=== PATIENT | female | born 1990 | race Caucasian/White ===

== ENCOUNTER → 2019-08-28 10:39 | Outpatient (CLI) | payer OTHER, SELFPAY ==
--- NOTE | ~2019-08-28 | XR_ITS ---
XR chest 2V DATE: 08/28/2019 10:55 INDICATION: Cough for 4 months TECHNIQUE: 2 views COMPARISON: 07/04/2016 PA and lateral chest 12/04/2016 CT abdomen pelvis FINDINGS: Normal heart size. No hilar or mediastinal enlargement. No pulmonary infiltrate or consolid ation, pleural effusion or pulmonary vascular congestion or pneumothorax. On the lateral view there a re surgical clips overlying the right upper quadrant, likely due to cholecystectomy. 12/04/2016 CT abdo men pelvis reported findings of probable acute cholecystitis. IMPRESSION: No active cardiopulmonary disease Reviewed, dictated and finalized at location A.
== END ==
PROVIDERS: PCP Emergency Medicine; Visit Provider Emergency Medicine
DX: R05 Cough (principal)
CPT/HCPCS: 71046

== ENCOUNTER 2020-03-16 09:19 | Emergency (ER) | payer OTHER, SELFPAY ==
--- NOTE | ~2020-03-16 | XR_ITS ---
EXAMINATION: XR foot RT min 3V DATE: 03/16/2020 09:41 INDICATION: Lateral right foot pain. TECHNIQUE: 4 views of right foot were obtained. COMPARISON: None. FINDINGS: Bone alignment is normal. No fracture. There is mild osteoarthritis of first metatarsophala ngeal joint. There is soft tissue swelling lateral to fifth metatarsal. IMPRESSION: 1. Mild osteoarthritis of first metatarsophalangeal joint. Reviewed, dictated and finalized at location B. HER VOCAL
--- NOTE | 2020-03-16 09:28 | ED.LOWEXIN ---
HPI - Extremity Injury (Lower) General Chief Complaint: Extremity Injury, Lower Stated Complaint: Right foot Pain Source: patient and RN notes reviewed Mode of arrival: ambulatory Limitations: no limitations Related Data Home Medications Medication Instructions Recorded Confirmed levonorgestrel [Susan] 1 device INTRAUTERINE ONCE 03/16/20 03/16/20 sertraline [Zoloft] 25 mg PO HS 03/16/20 03/16/20 Allergies Allergy/AdvReac Type Severity Reaction Status Date / Time No Known Allergies Allergy Verified 03/16/20 09:33 Review of Systems Review of Systems: Narrative: This is a 29-year-old white female who presented to urgent care today with complaints of right foot pain. 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 She noticed yesterday that she had pain to the lateral side of her left foot with pressure. Patient decided to come to the urgent care to rule out a fracture. She did note that yesterday she was unable to prevent putting pressure on her foot due to her household duties and care for her children. Patient's pulses were palpable in her lower extremities she did have full range of motion, she has some tenderness to the lateral side of her foot with palpation and pain with extension. I did not notice any swelling or ecchymosis. Patient notes that she does have pain with weightbearing. Patient has no neurovascular compromised. will discharge patient home with a Cristopher wrap, instructions to take ibuprofen for inflammation in All systems reviewed & are unremarkable except as noted in HPI and below (10 point system reviewed) PMFSH Family History Family History Other Asthma Diabetes mellitus Hypertension Social History Social History Smoking status: Former smoker Smoking end date: 05/06/09 Alcohol intake: current Gender identity (if verbalized by the patient): Female Exam Narrative: Exam Narrative: GENERAL: This is a well-nourished, well-developed patient, in no apparent distress. HEAD: normocephalic, atraumatic. EYES: PERRL. Sclera clear/white. Vision is grossly intact. EARS: External ears normal, auditory canals clear and without drainage, TMs normal without perforation. Hearing grossly intact. NOSE: External nose normal with no obvious nasal discharge, nares without redness, no rhinorrhea. THROAT: Mucous membranes moist, posterior pharynx clear. NECK: Neck supple, non-tender without lymphadenopathy, masses or thyromegaly. CARDIOVASCULAR: Regular rate and rhythm without murmurs, gallops, or rubs. RESPIRATORY: Clear to auscultation. Breath sounds equal bilaterally. No wheezes, rales, or rhonchi. GASTROINTESTINAL: Abdomen soft, non-tender, nondistended. Bowel sounds are active. No hepato-splenomegaly, or palpable masses. No guarding. SKIN: warm, intact with no suspicious lesions or rash, good texture and turgor. NEURO: awake, alert, and oriented to person, place and time. There were no obvious focal neurologic abnormalities. Steady gait EXTREMITIES: Normal range of motion. No edema. No calf tenderness. Negative Homans sign bilaterally. Left ankle and foot pain with palpitation and extension BACK: Nontender without deformity or crepitance. No flank tenderness. Course Vital Signs Vital signs: Vital Signs Temperature 98.8 F 03/16/20 09:30 Pulse Rate 66 03/16/20 09:30 Respiratory Rate 16 03/16/20 09:30 Blood Pressure 144/76 H 03/16/20 09:30 Pulse Oximetry 98 03/16/20 09:30 Temperature 98.8 F 03/16/20 09:30 Pulse Rate 66 03/16/20 09:30 Respiratory Rate 16 03/16/20 09:30 Blood Pressure 144/76 H 03/16/20 09:30 Pulse Oximetry 98 03/16/20 09:30 Procedures Other Procedure Procedure 1: Other Procedure: Cristopher wrap the extremity and provide crutches MDM - Extrem
[2020-03-16 09:30] VITALS: BP 144/76; PULSE 66; RESP 16; TEMP 37.1; O2SAT 98
== END 2020-03-16 10:00 | disposition home or self-care (01) ==
PROVIDERS: Emergency Provider Nurse Practitioner
DX: S93.401A Sprain of unspecified ligament of right ankle, initial encounter (principal); S96.911A Strain of unspecified muscle and tendon at ankle and foot level, right foot, initial encounter; X58.XXXA Exposure to other specified factors, initial encounter; Z87.891 Personal history of nicotine dependence
CPT/HCPCS: 73630; 99213; G0463

== ENCOUNTER 2020-05-02 15:50 | Emergency (ER) | payer OTHER, SELFPAY ==
[2020-05-02 15:53] VITALS: BP 146/87; PULSE 91; RESP 18; TEMP 35.9; O2SAT 100
--- NOTE | 2020-05-02 16:38 | ED.GENADULT ---
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 just prior to arrival last tetanus up-to-date notes mild discomfort presents in no distress Related Data Home Medications Medication Instructions Recorded Confirmed levonorgestrel [Susan] 1 device INTRAUTERINE ONCE 03/16/20 03/16/20 sertraline [Zoloft] 25 mg PO HS 03/16/20 03/16/20 Allergies Allergy/AdvReac Type Severity Reaction Status Date / Time No Known Allergies Allergy Verified 05/02/20 15:58 Review of Systems Constitutional: Constitutional: Denies chills and Denies fever(s) Respiratory: Respiratory: Denies cough and Denies dyspnea Musculoskeletal: Musculoskeletal: Denies myalgias and Denies deformity Neurologic: Denies Sensory deficit (Neuro), Denies tingling and Denies weakness PMFSH Family History Family History Other Asthma Diabetes mellitus Hypertension Social History Social History Smoking status: Former smoker Smoking end date: 05/06/09 Alcohol intake: current Gender identity (if verbalized by the patient): Female Exam Narrative: Exam Narrative: GENERAL: Well-appearing, well-nourished, and in no acute distress. HEAD: Normocephalic, atraumatic. EYES: PERRLA and EOMI. ENT: Nares clear, no rhinorrhea or epistaxis. Mucous membranes moist. EXTREMITIES: Normal range of motion. No edema. SKIN: Warm, dry, no rash. Half centimeter superficial skin avulsion distal right index finger NEURO: No focal deficits. Alert and oriented x3. Neurovascularly intact PSYCH: Normal mood and affect. Course Course Emergency Course: Patient in the room in no distress aware of case findings treatment plan diagnosis Vital Signs Vital signs: Vital Signs Temperature 96.7 F L 05/02/20 15:53 Pulse Rate 91 05/02/20 15:53 Respiratory Rate 18 05/02/20 15:53 Blood Pressure 146/87 H 05/02/20 15:53 Pulse Oximetry 100 05/02/20 15:53 Temperature 96.7 F L 05/02/20 15:53 Pulse Rate 91 05/02/20 15:53 Respiratory Rate 18 05/02/20 15:53 Blood Pressure 146/87 H 05/02/20 15:53 Pulse Oximetry 100 05/02/20 15:53 Medical Decision Making MDM Narrative Medical decision making narrative: Patients injury or pain is consistent with musculoskeletal etiology. No signs of neurological or vascular compromise on exam. Compartments and tisues are soft without signs of compartment syndrome. Pain is felt appropriate for further evaluation on an outpatient basis. Vital Signs Vital Signs: Vital Signs Temperature 96.7 F L 05/02/20 15:53 Pulse Rate 91 05/02/20 15:53 Respiratory Rate 18 05/02/20 15:53 Blood Pressure 146/87 H 05/02/20 15:53 Pulse Oximetry 100 05/02/20 15:53 Temperature 96.7 F L 05/02/20 15:53 Pulse Rate 91 05/02/20 15:53 Respiratory Rate 18 05/02/20 15:53 Blood Pressure 146/87 H 05/02/20 15:53 Pulse Oximetry 100 05/02/20 15:53 Discharge Plan Discharge Clinical Impression: Avulsion of skin Patient Disposition: Home, Self-Care Condition: Stable Instructions: Antibiotic Form, Skin Avulsion (ED) Additional Instructions: Follow up with primary care in the next 7 days for re-evaluation return if symptoms worsen or concerns, any increase in redness swelling pain or fever over 100.5 Clean wound with mild soapy water. Apply antibiotic ointment and clean dressing at least three times daily Prescriptions: No Action sertraline [Zoloft] 25 mg Tablet 25 mg PO HS RF: 0 Susan 14 mcg/24 hrs (3 yrs) 13.5 mg Intrauterine Device 1 dev
== END 2020-05-02 16:53 | disposition home or self-care (01) ==
PROVIDERS: Emergency Provider Emergency Medicine; PCP Physician Assistant
DX: S61.200A Unspecified open wound of right index finger without damage to nail, initial encounter (principal); Z87.891 Personal history of nicotine dependence; W26.9XXA Contact with unspecified sharp object(s), initial encounter; Y93.G1 Activity, food preparation and clean up
CPT/HCPCS: 99282

== ENCOUNTER 2020-07-01 10:05 | Outpatient (CLI) | payer OTHER, SELFPAY ==
--- NOTE | ~2020-07-01 | US_ITS ---
EXAMINATION: US thyroid EXAM DATE: 07/01/2020 10:28 INDICATION: Single nontoxic thyroid nodule. TECHNIQUE: Multiple grayscale and Doppler images of the thyroid were obtained (by a technologist who performed the scan) and subsequently reviewed. Individual nodules and recommendations may be reporte d in accordance with TI-RADS system as designated by the 2017 ACR White Paper TI-RADS committee. The re is no prior study for comparison. FINDINGS: The right thyroid lobe measures 4.6 x 2.1 x 1.7 cm, the left measuring 5.4 x 1.8 x 1.5 cm. There is m ildly diffusely heterogeneous thyroid echogenicity without focal nodule identified. IMPRESSION: 1. Mild thyromegaly. Reviewed, dictated and finalized at location B. TE ADVISOR IMPRESSION: 1. Mild thyromegaly.
== END 2020-07-01 10:06 | disposition home or self-care (01) ==
PROVIDERS: PCP Physician Assistant; Visit Provider Physician Assistant
DX: E04.1 Nontoxic single thyroid nodule (principal)
CPT/HCPCS: 76536

== ENCOUNTER 2020-12-03 11:23 | Emergency (ER) | payer OTHER, SELFPAY ==
--- NOTE | ~2020-12-03 | CT_ITS ---
EXAMINATION: CT abdomen pelvis wo con DATE: 12/03/2020 13:25 INDICATION: Left upper quadrant abdominal pain TECHNIQUE: Computed tomography (CT) of the abdomen and pelvis was performed without intravenous contr ast. Automated exposure control and iterative reconstruction technique were employed. The dose-length product was 794.63 mGy-cm. COMPARISON: 12/04/2016 FINDINGS: Lung bases are clear. Heart size is normal. No pericardial or pleural effusion. Cholecystectomy clips at the gallbladder fossa. Liver, spleen, pancreas and bilateral adrenal glands are normal. Bilateral nephrolithiasis with a 1 mm stone at the lower pole of the left kidney and 4 stones in the right kid amilcar, the largest 2 measuring 3-4 mm. There is a 2 mm stone at the left ureterovesicular junction with mild left hydroureteronephrosis. Bladder is otherwise unremarkable. Bowels are unremarkable. The hafsa endix is not visualized and reportedly surgically absent. There is an IUD which is abnormally positio rosales at the lower uterine segment with the central stem and extending through the endocervical canal. Bilateral adnexa are unremarkable. No free intraperitoneal gas or fluid. No pathologically enlarged a bdominal or pelvic lymphadenopathy. Sacralized L5 segment. IMPRESSION: 1. Bilateral nephrolithiasis with at least partially obstructing 2 mm stone at the left ureterovesicu lar junction with mild left hydroureteronephrosis. 2. IUD is positioned within the lower uterine segment extending into the endocervical canal. Recommen d notification of patient's SYSTEM ARCHIVE ANALYST. Reviewed, dictated and finalized at location A. IMPRESSION: 1. Bilateral nephrolithiasis with at least partially obstructing 2 mm stone at the left ureterovesicular junction with mild left hydroureteronephrosis. 2. IUD is positioned within the lower uterine segment extending into the endoce rvical canal. Recommend notification of patient's SYSTEM ARCHIVE ANALYST.
[2020-12-03 11:30] VITALS: BP 144/82; PULSE 60; RESP 20; TEMP 36.8; O2SAT 98
[2020-12-03 12:10] LABS: Basophils Absolute Auto 0.1 K/mm3 (0.0-0.1); Basophils Percent Auto 0.5 % (0.2-1.2); Eosinophils Absolute Auto 0.1 K/mm3 (0-0.3); Eosinophils Percent Auto 0.6 % (0-4.4); Hematocrit 47.6 % (37.0-47.0); Hemoglobin 15.9 g/dL (12.0-15.0); Immature Granulocyte Absolute 0.04 K/mm3 (0.00-0.031); Immature Granulocyte Percent A 0.4 % (0-0.5); Lymphocytes Absolute Auto 1.91 K/mm3 (0.9-3.2); Mean Corpuscular HGB Conc 33.4 g/dl (32-36); Mean Corpuscular Volume 86.9 fl (80-100); Mean Platelet Volume 10.2 fl (7.4-10.4); Monocytes Absolute Auto 0.8 K/mm3 (0.1-0.6); Monocytes Percent Auto 7.6 % (2.6-8.5); Neutrophils Absolute Auto 7.2 K/mm3 (1.3-6.7); Neutrophils Percent Auto 71.9 % (45.5-73.1); Platelet Count Result 268 k/mm3 (150-375); Red Blood Count 5.48 M/mm3 (4.2-5.4); Red Cell Distribution Width 11.9 % (11.5-14.5); White Blood Count 10.1 K/mm3 (4.5-10.0)
[2020-12-03 12:17] LABS: Add Urine Microscopic? YES; Appearance Urine Cloudy (Clear); Bilirubin Urine Negative (Negative); Blood Urine 2+ (Negative); Color Urine Yellow (Yellow); Glucose Urine UA Negative (Negative); Ketones Urine Negative (Negative); Leukocyte Esterase Ur Trace LEU/UL (Negative); Mucus Urine Rare /lpf; Nitrate Urine Negative (Negative); Protein Urine Negative (Negative); Specific Grav Ur 1.019 (1.001-1.035); Squamous Epithelial Cell Urine Many /hpf (Few); WBC Urine 0-3 /hpf
[2020-12-03 12:21] LABS: Anion Gap 13 mmol/L (8-16); Blood Urea Nitrogen 13 mg/dL (7-17); Calcium 10.6 mg/dL (8.4-10.2); Carbon Dioxide 24 mmol/L (22-30); Chloride 103 mmol/L (98-107); Estimated CRCL calculation 116 ml/min; Estimated Glomerular Filt Rate > 60; Glucose 94 mg/dL (65-110); Potassium 4.8 mmol/L (3.4-5.0); Sodium 140 mmol/L (137-145)
[2020-12-03] MEDS: SODIUM CHLORIDE 0.9% IV 1,000 ML 999 ML IV CONT (12:52)
[2020-12-03] MEDS: KETOROLAC 30 MG/ML VIAL (*BKC) IV PUSH (12:53)
[2020-12-03 13:07] LABS: Pregnancy On Board Control Positive; Urine Pregnancy Test Negative
--- NOTE | 2020-12-03 14:57 | ED.ABDPAIN ---
HPI - Abdominal Pain General Chief Complaint: Abdominal Pain Stated Complaint: ABDOMINAL PAIN Time Seen by Provider: 12/03/20 12:27 History of Present Illness HPI narrative: Patient is a 30-year-old female who presents ER with left-sided flank pain and abdominal pain. Has history of kidney stones. Starts in the left upper quadrant radiates down into the groin. No fevers or chills or sweats. No chest pain or chest pressure. Mild nausea but no vomiting. No alleviating factors. Related Data Home Medications Medication Instructions Recorded Confirmed levonorgestrel [Susan] 1 device INTRAUTERINE ONCE 03/16/20 03/16/20 sertraline [Zoloft] 25 mg PO HS 03/16/20 03/16/20 Allergies Allergy/AdvReac Type Severity Reaction Status Date / Time No Known Allergies Allergy Verified 12/03/20 12:39 Review of Systems Review of Systems: All systems reviewed & are unremarkable except as noted in HPI and below Constitutional: Constitutional: Denies chills, Denies fever(s) and Denies weakness ENT: Denies nasal congestion and Denies sore throat Cardiovascular: Cardiovascular: Denies chest pain and Denies radiating jaw, neck or arm pain Gastrointestinal: Gastrointestinal: Reports abdominal pain, Reports nausea and Denies vomiting Genitourinary: Genitourinary: Denies hematuria, Reports nocturia, Denies dysuria and Reports flank pain PMFSH Past Medical History Medical History (Updated 12/03/20 @ 15:03 by Satnam Dozier MD) Anxiety Depression Kidney stones Surgical History Surgical History (Updated 12/03/20 @ 15:03 by Satnam Dozier MD) History of appendectomy History of section History of cholecystectomy Family History Family History Other Asthma Diabetes mellitus Hypertension Social History Social History Smoking status: Former smoker Smoking end date: 05/06/09 Alcohol intake: current Gender identity (if verbalized by the patient): Female Exam Narrative: GENERAL: Well-appearing, well-nourished, and in no acute distress. HEAD: Normocephalic, atraumatic. CHEST: Clear to auscultation. No respiratory distress. HEART: Regular rate and rhythm. Normal peripheral pulses. ABDOMEN: Soft, nontender, nondistended EXTREMITIES: Normal range of motion. No edema. SKIN: Warm, dry, no rash. NEURO: Alert and oriented x3. PSYCH: Normal mood and affect. Course Course Emergency Course: Patient informed of results. Also discussed her low-lying IUD and need for follow-up with OB. Patient verbalized understanding. Pain controlled with Toradol. Discharge home. Vital Signs Vital signs: Vital Signs Temperature 98.2 F 12/03/20 11:30 Pulse Rate 60 12/03/20 11:30 Respiratory Rate 20 12/03/20 11:30 Blood Pressure 144/82 H 12/03/20 11:30 Pulse Oximetry 98 12/03/20 11:30 Temperature 98.2 F 12/03/20 11:30 Pulse Rate 60 12/03/20 11:30 Respiratory Rate 20 12/03/20 11:30 Blood Pressure 144/82 H 12/03/20 11:30 Pulse Oximetry 98 12/03/20 11:30 MDM - Abdominal Pain Lab Data Result diagrams: 12/03/20 12:03 12/03/20 12:03 Labs: Lab Results 12/03/20 12/03/20 12/03/20 Range/Units 12:03 12:03 12:03 WBC 10.1 H (4.5-10.0) K/mm3 RBC 5.48 H (4.2-5.4) M/mm3 Hgb 15.9 H (12.0-15.0) g/dL Hct 47.6 H (37.0-47.0) % MCV 86.9 (80-100) fl MCH 29.0 (26-34) pg MCHC 33.4 (32-36) g/dl RDW 11.9 (11.5-14.5) % Plt Count 268 (150-375) k/mm3 MPV 10.2 (7.4-10.4) fl Immature Gran % (Auto) 0.4 (0-0.5) % Neut % (Auto) 71.9 (45.5-73.1) % Lymph % (Auto) 19.0 (18.3-44.2) % Jessamine % (Auto) 7.6 (2.6-8.5) % Eos % (Auto) 0.6 (0-4.4) % Baso % (Auto) 0.5 (0.2-1.2) % Lymph # (Auto) 1.91 (0.9-3.2) K/mm3 Jessamine # (Auto) 0.8 H (0.1-0.6) K/mm3 Eos # (Auto) 0.1 (0-0.3) K/mm3 Bas
[2020-12-03 15:59] VITALS: BP 138/75; PULSE 63; RESP 17; O2SAT 100
== END 2020-12-03 16:00 | disposition home or self-care (01) ==
PROVIDERS: Emergency Medicine; Emergency Provider Emergency Medicine; PCP Physician Assistant
DX: N13.2 Hydronephrosis with renal and ureteral calculous obstruction (principal); T83.32XA Displacement of intrauterine contraceptive device, initial encounter; F41.9 Anxiety disorder, unspecified; F32.9 Major depressive disorder, single episode, unspecified; Z87.891 Personal history of nicotine dependence; Z87.442 Personal history of urinary calculi
CPT/HCPCS: 36415; 74176; 80048; 81001; 81025; 85025; 96361; 96374; 99284; J1885; J7030

== ENCOUNTER 2021-02-21 14:20 | Emergency (ER) | payer OTHER, SELFPAY ==
--- NOTE | ~2021-02-21 | CT_ITS ---
EXAMINATION: CT abdomen pelvis w con INDICATION: Left lower abdominal pain TECHNIQUE: Computed tomographic images of the abdomen and pelvis were obtained after the administrati on of 100 cc of Omnipaque 350 intravenous contrast. The dose-length product (DLP) was 1363.47 mGy-cm. Automated exposure control and iterative reconstruction technique were employed. COMPARISON: 12/03/2020 FINDINGS: Minimal dependent atelectasis is present in the lung bases. The heart size is normal. The g allbladder is surgically absent. The liver, spleen, pancreas, and adrenal glands are normal. Nonobstr ucting stones of the right kidney measure up to 5 mm. There is a 2 mm nonobstructing stone of the lef t kidney lower pole. No pathologically enlarged abdominal or pelvic lymph nodes are identified. There is no free intraperitoneal gas or evidence of bowel obstruction. An IUD is present in the uterus in expected position. There is a small fat-containing umbilical hernia. An approximately 1.9 x 1.6 cm so ft tissue density nodule is present in the subcutaneous fat of the left lower quadrant. Although pres ent on the 12/03/2020 comparison, there appears to be slight increase in size with surrounding inflamm atory change. IMPRESSION: 1. Indeterminate soft tissue density in the subcutaneous tissues of the left lower quadrant with surr ounding inflammatory change. Clinically correlate for tenderness at this site and consider trial of a ntibiotics. Then, follow-up targeted ultrasound and possible biopsy are recommended. Reviewed, dictated and finalized at location A. IMPRESSION: 1. Indeterminate soft tissue density in the subcutaneous tissues of the left lo wer quadrant with surrounding inflammatory change. Clinically correlate for ten derness at this site and consider trial of antibiotics. Then, follow-up targete d ultrasound and possible biopsy are recommended.
--- NOTE | ~2021-02-21 | US_ITS ---
EXAMINATION: US pelvic complete w TV DATE: 02/21/2021 17:37 INDICATION: Left adnexal pain TECHNIQUE: Multiple transabdominal and endovaginal sonographic images of the pelvis were obtained. COMPARISON: None. FINDINGS: The uterus measures 10.1 x 4.6 x 6.0 cm. An IUD is present in expected position. The endome trial complex measures 7 mm. The right ovary measures 2.7 x 2.0 x 1.5 cm. The left ovary measures 3.4 x 2.2 x 2.2 cm. There is normal vascular flow in the ovaries. There is no free fluid in the pelvis. IMPRESSION: 1. No sonographic correlate for the patient's symptoms. Reviewed, dictated and finalized at location A.
[2021-02-21 14:21] VITALS: BP 116/87; PULSE 79; RESP 20; TEMP 36.7; O2SAT 100
[2021-02-21 15:28] LABS: Basophils Absolute Auto 0.1 K/mm3 (0.0-0.1); Basophils Percent Auto 0.5 % (0.2-1.2); Eosinophils Absolute Auto 0.1 K/mm3 (0-0.3); Hematocrit 47.6 % (37.0-47.0); Hemoglobin 16.5 g/dL (12.0-15.0); Immature Granulocyte Absolute 0.02 K/mm3 (0.00-0.031); Immature Granulocyte Percent A 0.2 % (0-0.5); Lymphocytes Absolute Auto 2.54 K/mm3 (0.9-3.2); Lymphocytes Percent Auto 27.8 % (18.3-44.2); Mean Corpuscular HGB Conc 34.7 g/dl (32-36); Mean Corpuscular Hemoglobin 29.8 pg (26-34); Mean Corpuscular Volume 85.9 fl (80-100); Mean Platelet Volume 10.2 fl (7.4-10.4); Monocytes Absolute Auto 0.5 K/mm3 (0.1-0.6); Monocytes Percent Auto 5.4 % (2.6-8.5); Neutrophils Absolute Auto 5.9 K/mm3 (1.3-6.7); Neutrophils Percent Auto 65.1 % (45.5-73.1); Platelet Count Result 252 k/mm3 (150-375); Red Blood Count 5.54 M/mm3 (4.2-5.4); Red Cell Distribution Width 12.3 % (11.5-14.5); White Blood Count 9.1 K/mm3 (4.5-10.0)
[2021-02-21 15:32] LABS: Add Urine Microscopic? YES; Appearance Urine Cloudy (Clear); Bilirubin Urine Negative (Negative); Blood Urine 3+ (Negative); Color Urine Yellow (Yellow); Glucose Urine UA Negative (Negative); Ketones Urine Negative (Negative); Leukocyte Esterase Ur Negative LEU/UL (Negative); Mucus Urine Rare /lpf; Nitrate Urine Negative (Negative); Protein Urine Negative (Negative); Specific Grav Ur 1.016 (1.001-1.035); Squamous Epithelial Cell Urine Moderate /hpf (Few); Urobilinogen Urine Negative mg/dL (<2.0); WBC Urine 0-3 /hpf
[2021-02-21 15:33] LABS: Alanine Aminotransferase 41 U/L (4-35); Albumin Level 5.2 g/dL (3.5-5.1); Alkaline Phosphatase 80 U/L (38-126); Anion Gap 13 mmol/L (8-16); Aspartate Amino Transferase 31 U/L (14-36); Blood Urea Nitrogen 11 mg/dL (7-17); Carbon Dioxide 26 mmol/L (22-30); Chloride 105 mmol/L (98-107); Estimated CRCL calculation 133 ml/min; Estimated Glomerular Filt Rate > 60; Glucose 103 mg/dL (65-110); Lipase 52 U/L (23-300); Potassium 4.7 mmol/L (3.4-5.0); Sodium 144 mmol/L (137-145)
[2021-02-21 17:45] VITALS: BP 145/79; PULSE 54; RESP 16; O2SAT 98
[2021-02-21] MEDS: KETOROLAC 30 MG/ML VIAL (*BKC) IV PUSH (18:07)
--- NOTE | 2021-02-21 18:17 | ED.ABDPAIN ---
HPI - Abdominal Pain General Chief Complaint: Abdominal Pain Stated Complaint: pain in my L ovary Time Seen by Provider: 02/21/21 16:47 Source: patient and RN notes reviewed Mode of arrival: ambulatory Limitations: no limitations History of Present Illness HPI narrative: Patient is a 30-year-old female who presents for evaluation of abdominal pain that has began to intensify over the last day as a sharp pain in the lower abdomen patient also is currently on her menses she was concerned that she may have developed another ovarian cyst she also has a history of kidney stones she notes that the pain caused her to have emesis she has taken ibuprofen the last of which was earlier this morning with no improvement denies other complaints or concerns is followed by [facility] Related Data Home Medications Medication Instructions Recorded Confirmed ibuprofen 02/21/21 Allergies Allergy/AdvReac Type Severity Reaction Status Date / Time No Known Allergies Allergy Verified 12/03/20 12:39 Review of Systems Review of Systems: All systems reviewed & are unremarkable except as noted in HPI and below PMFSH Past Medical History Medical History Anxiety Depression Kidney stones Surgical History Surgical History History of appendectomy History of section History of cholecystectomy Family History Family History Other Asthma Diabetes mellitus Hypertension Social History Social History Smoking status: Former smoker Smoking end date: 05/06/09 Alcohol intake: current Gender identity (if verbalized by the patient): Female Exam Narrative: GENERAL: Well-appearing, well-nourished, and in no acute distress. HEAD: Normocephalic, atraumatic. EYES: PERRLA and EOMI. ENT: Nares clear, no rhinorrhea or epistaxis. Mucous membranes moist. CHEST: Clear to auscultation. No respiratory distress. No wheezes rales or rhonchi HEART: Regular rate and rhythm. No murmur heard. Normal peripheral pulses. ABDOMEN: Soft, tenderness across the lower quadrants of the abdomen, nondistended. EXTREMITIES: Normal range of motion. No edema. SKIN: Warm, dry, no rash. NEURO: No focal deficits. Alert and oriented x3. PSYCH: Normal mood and affect. Course Course Emergency Course: Patient evaluated in the emergency department for abdominal pain patient has follow-up with her inpatient services rn next Shivam she is aware of her case findings treatment plan and diagnosis she is feeling better at this time she feels comfortable with the outpatient follow-up she has been given strict reasons to return she is nontoxic-appearing without emesis Vital Signs Vital signs: Vital Signs Temperature 98.0 F 02/21/21 14:21 Pulse Rate 79 02/21/21 14:21 Respiratory Rate 20 02/21/21 14:21 Blood Pressure 116/87 02/21/21 14:21 Pulse Oximetry 100 02/21/21 14:21 Temperature 98.8 F 02/21/21 19:19 Pulse Rate 95 02/21/21 19:19 Respiratory Rate 14 02/21/21 19:19 Blood Pressure 120/74 02/21/21 19:19 Pulse Oximetry 99 02/21/21 19:19 MDM - Abdominal Pain MDM Narrative Medical decision making narrative: Patient presented with abdominal pain patient was made aware of her case findings treatment plan diagnosis unsure as to the soft tissue swelling in the left lower abdomen she does have tenderness to location so she will be placed on antibiotics she will follow with her inpatient services rn for further evaluation she is felt appropriate for outpatient reevaluation Lab Data Result diagrams: 02/21/21 15:05 02/21/21 15:05 Labs: Lab Results 02/21/21 02/21/21 02/21/21 Range/Units 15:05 15:05 15:05 WBC 9.1 (4.5-10.0) K/mm3 RBC 5.54 H (4.2-5.4) M/mm3 Hgb 16.5 H (12.0-15.0) g
[2021-02-21 19:19] VITALS: BP 120/74; PULSE 95; RESP 14; TEMP 37.1; O2SAT 99
--- NOTE | 2021-02-21 19:20 | PC.NURSE ---
Assumed care of pt. at this time. Report from Cat. Pola PULIDO
[2021-02-21 19:51] VITALS: BP 133/83; PULSE 55; RESP 18; O2SAT 100
== END 2021-02-21 19:53 | disposition home or self-care (01) ==
PROVIDERS: Emergency Medicine; Emergency Provider Emergency Medicine; PCP Physician Assistant
DX: R10.30 Lower abdominal pain, unspecified (principal); Z87.442 Personal history of urinary calculi; Z87.891 Personal history of nicotine dependence
CPT/HCPCS: 36415; 74177; 76830; 76856; 80053; 81001; 81025; 83690; 85025; 96374; 99284; J1885; Q9967

== ENCOUNTER 2021-03-08 14:57 | Outpatient (CLI) | payer OTHER, SELFPAY ==
--- NOTE | ~2021-03-08 | US_ITS ---
US abdomen complete DATE: 03/08/2021 15:27 INDICATION: Unspecified abdominal pain. Left lower abdomen abscess in the scar. TECHNIQUE: Real-time imaging of the abdomen, Doppler analysis COMPARISON: 02/21/2021 CT abdomen pelvis FINDINGS: The gallbladder is surgically absent. No hepatic or pancreatic space-occupying mass lesion. The common bile duct measures 3.7 mm, normal. N ormal splenic size. No renal mass lesion or hydronephrosis. Normal caliber of the abdominal aorta. Inferior vena cava is unremarkable. IMPRESSION: Status post cholecystectomy Reviewed, dictated and finalized at Location A. Reviewed, dictated and finalized at location A. IMPRESSION: Status post cholecystectomy
== END 2021-03-08 14:58 | disposition home or self-care (01) ==
LOC: ANHIMG 14:58
PROVIDERS: PCP Physician Assistant; Visit Provider Obstetrics & Gynecology
DX: R10.9 Unspecified abdominal pain (principal); Z90.49 Acquired absence of other specified parts of digestive tract
CPT/HCPCS: 76700

== ENCOUNTER 2022-01-23 13:20 | Outpatient (CLI) | payer OTHER, SELFPAY ==
--- NOTE | ~2022-01-23 | US_ITS ---
EXAMINATION: US breast LT limited HISTORY: Palpable lump at the 3:00 location of the left breast TECHNIQUE: Limited left breast ultrasound was performed. FINDINGS: There is no evidence of focal abnormal cystic or solid mass in the vicinity of the reported palpable abnormality of concern. IMPRESSION: No specific sonographic correlate is identified for the reported palpable abnormality of concern. Fur ther evaluation at this time should be based on clinical assessment. Continued follow-up physical exa mination is recommended. BI-RADS Category 1: Negative Reviewed, dictated and finalized at location A. IMPRESSION: No specific sonographic correlate is identified for the reported palpable abnor mality of concern. Further evaluation at this time should be based on clinical assessment. Continued follow-up physical examination is recommended. BI-RADS Category 1: Negative
== END 2022-01-23 13:21 | disposition home or self-care (01) ==
PROVIDERS: PCP Physician Assistant; Visit Provider Obstetrics & Gynecology
DX: R92.8 Other abnormal and inconclusive findings on diagnostic imaging of breast (principal)
CPT/HCPCS: 76642

== ENCOUNTER 2022-04-07 16:28 | Emergency (ER) | payer OTHER, SELFPAY ==
--- NOTE | ~2022-04-07 | CT_ITS ---
EXAMINATION: CT abdomen pelvis w con DATE: 04/07/2022 17:44 INDICATION: epigastric pain, N/V/D. History of cholecystectomy, appendectomy, and kidney stones. TECHNIQUE: Computed tomography (CT) of the abdomen and pelvis was performed with 100 mL Omnipaque-350 intravenous contrast. Automated exposure control and iterative reconstruction technique were employe d. The dose-length product was 1334.30 mGy-cm. COMPARISON: 02/21/2021. FINDINGS: Lower thorax: Dependent atelectasis. Liver: Normal. Biliary/Gallbladder: Gallbladder is absent. No bile duct dilation. Pancreas: No mass or duct dilation. Spleen: Normal. Adrenals:No mass. Kidneys: Bilateral nonobstructing calculi. No suspicious mass or hydronephrosis. GI tract: Mild distal esophageal and gastric wall edema No small or large bowel dilation. Surgically absent appendix. Mesentery/Peritoneum: No ascites, mass, or free air. Retroperitoneum: No mass. Pelvis: Normal bladder and uterus. Normal bilateral ovaries. Right corpus luteal cyst. IUD, in good p osition. Soft Tissues: 2 cm soft tissue density nodule again seen in the subcutaneous fat of the left lower qu adrant possibly associated with the lower left rectus muscle, similar in size to the prior study, wit h persistent mild fat stranding. Uncomplicated small fat-containing umbilical hernia. Bones: No acute osseous finding. IMPRESSION: Mild esophagitis/gastritis. Otherwise, no acute abdominopelvic process detected. Persistent soft tiss ue density nodule along the left lower quadrant anterior abdominal wall with mild inflammatory change , recommend nonemergent outpatient soft tissue ultrasound for further evaluation. Reviewed, dictated and finalized at location K. NGUAL INTERPRETER IMPRESSION: Mild esophagitis/gastritis. Otherwise, no acute abdominopelvic process detected . Persistent soft tissue density nodule along the left lower quadrant anterior abdominal wall with mild inflammatory change, recommend nonemergent outpatient soft tissue ultrasound for further evaluation.
[2022-04-07 16:31] VITALS: BP 121/66; PULSE 71; RESP 18; TEMP 36.7; O2SAT 98
--- NOTE | 2022-04-07 16:35 | ED.NAVMDI ---
HPI - Nausea/Vomiting/Diarrhea General Chief complaint: Nausea/Vomiting/Diarrhea Stated complaint: n/v/d, abd cramping Time Seen by Provider: 04/07/22 16:33 Source: patient Mode of arrival: EMS Limitations: no limitations History of Present Illness HPI Narrative: Patient is a 31-year-old female who presents the ED via EMS with report of N/V/D. Patient reports she ate [employer] fast food yesterday and developed nausea and vomiting last night. She also reported having upper abdominal cramping and bloating at that time. She developed diarrhea today and reported having several episodes. She has tried taking Tums, Gas-X, Imodium without relief. She has not tried anything for pain. Vomiting continued, which prompted her presentation. Patient denies any hematemesis, rectal bleeding, fever, cough or cold symptoms, urinary symptoms. Related Data Home Medications Medication Instructions Recorded Confirmed sertraline 25 mg tablet 25 mg PO DAILY 05/30/21 05/30/21 sertraline 50 mg tablet 50 mg PO DAILY 05/30/21 05/30/21 spironolactone 100 mg tablet 100 mg PO DAILY 05/30/21 05/30/21 Allergies Allergy/AdvReac Type Severity Reaction Status Date / Time No Known Allergies Allergy Verified 04/07/22 16:30 Review of Systems Review of Systems: CONSTITUTIONAL: Denies fever, chills, or sweats. ENT: Denies rhinorrhea, congestion, sore throat. CARDIOVASCULAR: Denies chest pain. RESPIRATORY: Denies cough or dyspnea. GASTROINTESTINAL: Reports epigastric pain and bloating, N/V/D. Denies rectal bleeding, hematemesis. GENITOURINARY: Denies dysuria or hematuria. All systems reviewed & are unremarkable except as noted in HPI and below PMFSH Past Medical History Medical History Anxiety Depression Hyperlipemia Intrauterine device Susan insertion 11/16/16 Susan removal/replacement 05/25/20 Susan removal/replacement 01/03/21 b/c device had shifted Kidney stones Surgical History Surgical History History of appendectomy History of section 11/24/13 09/27/15 History of cholecystectomy 12/30/16 Hx of tonsillectomy Family History Family History Other Diabetes mellitus maternal aunt Autism daughter Mother Diabetes mellitus Cerebrovascular accident Father Heart disease Grandparent Breast cancer paternal grandmother Sibling Cerebral palsy sister Other Asthma Hypertension Social History Social History Smoking status: Former smoker Tobacco type: e-cigarettes/vaping Smoking end date: 05/06/09 Alcohol intake: current Alcohol use details: 1-2 on weekends Substance use: never Substance use type: does not use Additional living arrangements comments: mother 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 HEAD: Normocephalic, atraumatic. NECK: Supple. No adenopathy, no masses. RESPIRATORY: Airway patent, respirations nonlabored. Clear to auscultation bilaterally, no rales, rhonchi, wheezing. CARDIOVASCULAR: Regular rate and rhythm without murmurs, rubs, or gallops. Peripheral pulses 2+ and equal bilaterally. ABDOMINAL: Soft, mild tenderness to palpation in epigastric region, nondistended, no hepatosplenomegaly. Normoactive BS. MUSCULOSKELETAL: Moves all extremities. Strength/ROM intact without gross deformities. SKIN: Warm, dry, normal color. No rashes. NEURO: A&O X3. Speech clear. Cranial nerves II-XII grossly intact. Steady gait. No ataxic movements. PSYCHIATRIC: Appropriate mood and affe
[2022-04-07 16:50] LABS: Basophils Percent Auto 0.3 % (0.2-1.2); Eosinophils Absolute Auto 0.1 K/mm3 (0-0.3); Eosinophils Percent Auto 1.1 % (0-4.4); Hematocrit 47.7 % (37.0-47.0); Hemoglobin 15.9 g/dL (12.0-15.0); Immature Granulocyte Absolute 0.05 K/mm3 (0.00-0.031); Immature Granulocyte Percent A 0.4 % (0-0.5); Lymphocytes Absolute Auto 2.21 K/mm3 (0.9-3.2); Lymphocytes Percent Auto 17.7 % (18.3-44.2); Mean Corpuscular HGB Conc 33.3 g/dl (32-36); Mean Platelet Volume 10.1 fl (7.4-10.4); Monocytes Percent Auto 7.9 % (2.6-8.5); Neutrophils Absolute Auto 9.1 K/mm3 (1.3-6.7); Neutrophils Percent Auto 72.6 % (45.5-73.1); Platelet Count Result 248 k/mm3 (150-375); Red Blood Count 5.48 M/mm3 (4.2-5.4); Red Cell Distribution Width 12.6 % (11.5-14.5); White Blood Count 12.5 K/mm3 (4.5-10.0)
[2022-04-07 17:00] VITALS: BP 106/56; PULSE 58; RESP 18; O2SAT 99
[2022-04-07 17:01] LABS: Alanine Aminotransferase 120 U/L (6-35); Albumin Level 4.8 g/dL (3.5-5.1); Alkaline Phosphatase 106 U/L (38-126); Anion Gap 9 mmol/L (8-16); Aspartate Amino Transferase 169 U/L (14-36); Blood Urea Nitrogen 10 mg/dL (7-17); Calcium 9.4 mg/dL (8.4-10.2); Carbon Dioxide 23 mmol/L (22-30); Chloride 106 mmol/L (98-107); Estimated CRCL calculation 134 ml/min; Estimated Glomerular Filt Rate > 60; Glucose 90 mg/dL (65-110); Lipase 62 U/L (23-300); Potassium 4.1 mmol/L (3.4-5.0); Sodium 138 mmol/L (137-145)
[2022-04-07] MEDS: SODIUM CHLORIDE 0.9% IV 1,000 ML 999 ML IV CONT (17:21)
[2022-04-07 17:22] LABS: Appearance Urine Slightly Cloudy (Clear); Bilirubin Urine Negative (Negative); Blood Urine Trace-lysed (Negative); Color Urine Yellow (Yellow); Glucose Urine UA Negative (Negative); Ketones Urine Negative (Negative); Leukocyte Esterase Ur Negative LEU/UL (Negative); Nitrate Urine Negative (Negative); Protein Urine Negative (Negative); Urobilinogen Urine 0.2 mg/dL (<2.0)
[2022-04-07] MEDS: MORPHINE SULFATE (*CRX) 4 MG/ML INJ IV PUSH (17:22)
[2022-04-07 17:31] LABS: Mucus Urine Rare /lpf; RBC Urine 0-2 /hpf (0-2); Squamous Epithelial Cell Urine Moderate /hpf (Few); WBC Urine 0-3 /hpf
[2022-04-07 17:37] LABS: Add Urine Microscopic? YES
[2022-04-07 17:45] VITALS: BP 99/57; PULSE 63; RESP 18; O2SAT 100
[2022-04-07 18:21] LABS: Influenza A QL RT-PCR Negative (Negative); Influenza B QL RT-PCR Negative (Negative); SARS-CoV-2 RNA PCR Negative
[2022-04-07] MEDS: PANTOPRAZOLE SODIUM IV 40 MG VIAL IV PUSH (18:24)
[2022-04-07] MEDS: BELLADONNA ALK/PHENOB ELIX 10 ML, MAG HYDROX/ALUMINUM HYD/SIMETH 30 ML, LIDOCAINE HCL 2... PO (18:24)
[2022-04-07 19:37] VITALS: BP 112/66; O2SAT 98
== END 2022-04-07 19:20 | disposition home or self-care (01) ==
PROVIDERS: Emergency Provider Physician Assistant; PCP Physician Assistant
DX: K29.00 Acute gastritis without bleeding (principal); R74.01 Elevation of levels of liver transaminase levels; R11.2 Nausea with vomiting, unspecified; Z87.891 Personal history of nicotine dependence; Z20.822 Contact with and (suspected) exposure to COVID-19
CPT/HCPCS: 36415; 74177; 80053; 81001; 81025; 83690; 85025; 87636; 96361; 96374; 96375; 99284; A9270; C9113; J2270; J7030; Q9967

== ENCOUNTER 2022-05-01 07:35 | Outpatient (CLI) | payer OTHER, SELFPAY ==
--- NOTE | ~2022-05-01 | US_ITS ---
Abdominal Soft Tissue Sonogram: Real-time sonographic imaging of the left lower quadrant at site of clinical concern was performed. Clinical History: Abdominal swelling/mass Findings: At the area of clinical concern at the left lower quadrant, there is a 1.8 x 1.4 x 1.7 cm h eterogeneously hypoechoic solid mass, with somewhat lobulated borders. Impression: 1.8 cm indeterminate solid appearing mass at the left lower quadrant, at the area of palpable/clinica l concern. Sonographic imaging features are nonspecific. Patient states that the lesion has been pres ent for one year, which, in addition to the young age of the patient, would suggest a benign lesion. Nevertheless, pre-and postcontrast MR should be considered to attempt to further characterize this le wood. Reviewed, dictated and finalized at location M. NTRYMAN Impression: 1.8 cm indeterminate solid appearing mass at the left lower quadrant, at the ar ea of palpable/clinical concern. Sonographic imaging features are nonspecific. Patient states that the lesion has been present for one year, which, in additio n to the young age of the patient, would suggest a benign lesion. Nevertheless, pre-and postcontrast MR should be considered to attempt to further characteriz e this lesion.
== END 2022-05-01 07:36 | disposition home or self-care (01) ==
LOC: ANHIMG 07:36
PROVIDERS: PCP Physician Assistant; Visit Provider Physician Assistant
DX: R19.00 Intra-abdominal and pelvic swelling, mass and lump, unspecified site (principal)
CPT/HCPCS: 76705

== ENCOUNTER 2022-06-02 16:08 | Emergency (ER) | payer OTHER, SELFPAY ==
[2022-06-02 16:23] VITALS: BP 140/82; PULSE 92; RESP 16; TEMP 37.6; O2SAT 99
--- NOTE | 2022-06-02 17:18 | ED.URI ---
HPI - URI/Sore Throat General Chief Complaint: Upper Respiratory Infection Stated Complaint: runny nose,sinus pressure,hurts to swallow Time Seen by Provider: 06/02/22 17:18 Source: patient, RN notes reviewed and old records reviewed Mode of arrival: ambulatory Limitations: no limitations History of Present Illness HPI Narrative: 32-year-old female presents to the [facility] with complaints of runny nose, sinus pressure and throat pain. Reports daughter tested positive for strep 2 weeks ago Declined testing Related Data Home Medications Medication Instructions Recorded Confirmed sertraline 25 mg tablet 25 mg PO DAILY 05/30/21 05/30/21 sertraline 50 mg tablet 50 mg PO DAILY 05/30/21 05/30/21 spironolactone 100 mg tablet 100 mg PO DAILY 05/30/21 05/30/21 Allergies Allergy/AdvReac Type Severity Reaction Status Date / Time No Known Allergies Allergy Verified 06/02/22 16:32 Review of Systems Review of Systems: All systems reviewed & are unremarkable except as noted in HPI and below Constitutional: Constitutional: Reports no additional constitutional complaints Eyes: Eyes: Reports no additional eye complaints ENT: Reports as per HPI and Reports sore throat Cardiovascular: Cardiovascular: Reports no additional cardiovascular complaints, Denies chest pain and Denies dyspnea Respiratory: Respiratory: Reports no additional respiratory complaints, Denies chest congestion, Denies cough and Denies dyspnea Gastrointestinal: Gastrointestinal: Reports no additional gastrointestinal complaints, Denies abdominal pain, Denies nausea and Denies vomiting Musculoskeletal: Musculoskeletal: Reports no additional musculoskeletal complaints Integumentary/Breasts: Skin/Breast: Reports system reviewed and no additional complaints, except as docu Neurologic: Reports system reviewed and no additional complaints, except as documented Psychiatric: Psychiatric: Reports no additional psychiatric complaints Allergic/Immunologic: Allergic/Immunologic: Reports no additional allergic/immunologic complaints [facility] Past Medical History Medical History Anxiety Depression Hyperlipemia Intrauterine device Susan insertion 11/16/16 Susan removal/replacement 05/25/20 Susan removal/replacement 01/03/21 b/c device had shifted Kidney stones Surgical History Surgical History History of appendectomy History of section 11/24/13 09/27/15 History of cholecystectomy 12/30/16 Hx of tonsillectomy Family History Family History Other Diabetes mellitus maternal aunt Autism daughter Mother Diabetes mellitus Cerebrovascular accident Father Heart disease Grandparent Breast cancer paternal grandmother Sibling Cerebral palsy sister Other Asthma Hypertension Social History Social History Smoking status: Former smoker Tobacco type: e-cigarettes/vaping Smoking end date: 05/06/09 Alcohol intake: current Alcohol use details: 1-2 on weekends Substance use: never Substance use type: does not use Living arrangements: with family Additional living arrangements comments: mother Occupation/Education: occupation 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 There is no relevant family history pertinent to the patient complaint. Exam Const: General: cooperative, healthy appearing, comfortable, no acute distress, well developed, alert and well nourished Nutritiona
== END 2022-06-02 17:28 | disposition home or self-care (01) ==
PROVIDERS: Emergency Provider Nurse Practitioner; PCP Physician Assistant
DX: H66.92 Otitis media, unspecified, left ear (principal); J02.9 Acute pharyngitis, unspecified; E78.5 Hyperlipidemia, unspecified; F41.9 Anxiety disorder, unspecified; F32.A Depression, unspecified
CPT/HCPCS: 87081; 87880; 99213; G0463

== ENCOUNTER 2023-09-10 23:22 | Emergency (ER) | payer BC, SELFPAY ==
[2023-09-10 23:29] VITALS: BP 96/65; PULSE 83; RESP 15; TEMP 36.3; O2SAT 97
[2023-09-10 23:48] LABS: Basophils Absolute Auto 0.1 K/mm3 (0.0-0.1); Basophils Percent Auto 0.4 % (0.2-1.2); Eosinophils Absolute Auto 0.2 K/mm3 (0-0.3); Eosinophils Percent Auto 0.9 % (0-4.4); Hematocrit 48.9 % (37.0-47.0); Hemoglobin 16.8 g/dL (12.0-15.0); Immature Granulocyte Absolute 0.11 K/mm3 (0.00-0.031); Immature Granulocyte Percent A 0.6 % (0-0.5); Lymphocytes Absolute Auto 1.19 K/mm3 (0.9-3.2); Lymphocytes Percent Auto 6.1 % (18.3-44.2); Mean Corpuscular HGB Conc 34.4 g/dl (32-36); Mean Corpuscular Hemoglobin 29.5 pg (26-34); Mean Corpuscular Volume 85.9 fl (80-100); Mean Platelet Volume 9.9 fl (7.4-10.4); Monocytes Absolute Auto 1.1 K/mm3 (0.1-0.6); Monocytes Percent Auto 5.6 % (2.6-8.5); Neutrophils Percent Auto 86.4 % (45.5-73.1); Platelet Count Result 252 k/mm3 (150-375); Red Blood Count 5.69 M/mm3 (4.2-5.4); Red Cell Distribution Width 12.6 % (11.5-14.5); White Blood Count 19.7 K/mm3 (4.5-10.0)
[2023-09-10 23:58] LABS: Alanine Aminotransferase 41 U/L (6-35); Albumin Level 4.9 g/dL (3.5-5.1); Alkaline Phosphatase 79 U/L (38-126); Anion Gap 8 mmol/L (4-12); Aspartate Amino Transferase 28 U/L (14-36); Bilirubin,Total 1.5 mg/dL (0.2-1.3); Blood Urea Nitrogen 14 mg/dL (7-17); Calcium 9.5 mg/dL (8.4-10.2); Carbon Dioxide 24 mmol/L (22-30); Chloride 103 mmol/L (98-107); Estimated CRCL calculation 122 ml/min; Estimated Glomerular Filt Rate > 60; Glucose 150 mg/dL (65-110); Lipase 53 U/L (23-300); Potassium 4.6 mmol/L (3.4-5.0); Sodium 135 mmol/L (137-145)
[2023-09-11 00:16] LABS: Add Urine Microscopic? YES; Appearance Urine Cloudy (Clear); Bacteria Urine 2+ /hpf; Bilirubin Urine 2+ (Negative); Blood Urine Non-Hemolyzed Trace (Negative); Color Urine Orange (Yellow); Glucose Urine UA Negative (Negative); Hyaline Casts Urine Present /lpf; Ketones Urine Negative (Negative); Leukocyte Esterase Ur 1+ LEU/UL (Negative); Need Manual Microscopic Reviewed; Nitrate Urine Positive (Negative); Protein Urine 1+ mg/dL (Negative); Specific Grav Ur 1.022 (1.001-1.035); Squamous Epithelial Cell Urine Moderate /hpf (Few); WBC Urine 0-5 /hpf (0-3)
[2023-09-11] MEDS: FAMOTIDINE 20 MG/2 ML VIAL IV PUSH (03:02)
[2023-09-11] MEDS: SODIUM CHLORIDE 0.9% IV 2,000 ML 999 ML IV CONT (03:02)
[2023-09-11] MEDS: ONDANSETRON INJ 4 MG/2 ML VIAL IV PUSH (03:02)
--- NOTE | 2023-09-11 05:14 | ED.GENADULT ---
HPI - General Adult General Chief complaint: Abdominal Pain Stated complaint: N/V/D, abd pain, SOB from vomiting Time Seen by Provider: 09/11/23 01:50 History of Present Illness HPI narrative: This is a 33-year-old female presenting with 24 hours of nausea vomiting diarrhea. All of her symptoms started after she a salad from [employer]. She believes she has food poisoning. She denies fevers chills chest pain difficulty breathing urinary symptoms. There is no blood in her diarrhea and she has no recent travel history. patient has already had her gallbladder and appendix removed. Related Data Home Medications Medication Instructions Recorded Confirmed spironolactone 100 mg tablet 100 mg PO DAILY 05/30/21 07/22/23 Allergies Allergy/AdvReac Type Severity Reaction Status Date / Time metoclopramide [From Reglan] Allergy Severe Hives Verified 09/11/23 02:55 [facility] Past Medical History Medical History Anxiety Depression Encounter for screening examination for sexually transmitted disease Endometriosis Hyperlipemia Intrauterine device Susan insertion 11/16/16 Susan removal/replacement 05/25/20 Susan removal/replacement 01/03/21 b/c device had shifted Kidney stones Surgical History Surgical History H/O laparoscopy (06/29/22) endometriosis History of appendectomy History of section 11/24/13 09/27/15 History of cholecystectomy 12/30/16 Hx of tonsillectomy Family History Family History Other Diabetes mellitus maternal aunt Autism daughter Mother Diabetes mellitus Cerebrovascular accident Father Heart disease Grandparent Breast cancer paternal grandmother Sibling Cerebral palsy sister Other Asthma Hypertension Social History Social History Smoking status: Former smoker Tobacco type: e-cigarettes/vaping Smoking end date: 05/06/09 Alcohol intake: former Alcohol use details: 1-2 on weekends Substance use: never Substance use type: does not use Do You Feel Safe in your Home?: Yes Lack of Transportation: No Lack of Food: Sometimes True Current Housing: I Have Housing Concerned About Future Housing: No Difficulty Paying Gas/Electric Bills: No Difficulty Paying for Meds: No Currently Unemployed: No Education: Trade/Vocational Certificate Difficulty w/ Childcare or Family Care: No Living arrangements: with family Additional living arrangements comments: living on her own Occupation/Education: occupation 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 Head: atraumatic. EYES: EOMI, NOSE: Atraumatic NECK: Trachea midline RESPIRATORY: No increased rate of breathing CARDIOVASCULAR: RRR, ABDOMINAL: Mild tenderness to palpation in the epigastric area, no guarding, no rebound, no CVA tenderness MUSCULOSKELETAl: No obvious deformities NEURO: Alert. Moving 4/4 extremities SKIN:: Warm, dry. Normal color PSYCHIATRIC: Normal affect Course Vital Signs Vital signs: Vital Signs Temperature 97.4 F L 09/10/23 23:29 Pulse Rate 83 09/10/23 23:29 Respiratory Rate 15 09/10/23 23:29 Blood Pressure 96/65 L 09/10/23 23:29 Pulse Oximetry 97 09/10/23 23:29 Temperature 98.3 F 09/11/23 05:24 Pulse Rate 81 09/11/23 05:24 Respiratory Rate 15 09/11/23 05:24 Blood Pressure 116/54 L 09/11/23 05:24 Pulse Oximetry 100 09/11/23 05:24 Medical Decision Making [facility] Narrative Medical decision making narrative: -Course: 33-year-old female p
[2023-09-11 05:24] VITALS: BP 116/54; PULSE 81; RESP 15; TEMP 36.8; O2SAT 100
[2023-09-11] MEDS: MAG HYDROX/AL HYDROX/SIMETH 30 ML UDC PO (05:38)
[2023-09-11 06:00] VITALS: BP 118/68
== END 2023-09-11 06:12 | disposition home or self-care (01) ==
PROVIDERS: Emergency Provider Emergency Medicine; PCP Physician Assistant
DX: K52.9 Noninfective gastroenteritis and colitis, unspecified (principal); F41.9 Anxiety disorder, unspecified; F32.A Depression, unspecified; E78.5 Hyperlipidemia, unspecified; Z87.442 Personal history of urinary calculi
CPT/HCPCS: 36415; 80053; 81001; 81025; 83690; 85025; 96361; 96374; 96375; 99284; A9270; J2405; J7030

== ENCOUNTER 2024-08-21 03:25 | Emergency (ER) | payer BC, SELFPAY ==
--- NOTE | ~2024-08-21 | XR_ITS ---
Left Knee Technique: AP, lateral, and oblique views were obtained. Clinical History: Pain Findings: No fracture or dislocation is seen. Stable sclerotic density projecting over the medial fem oral condyle Osseous alignment is anatomic. Joint spaces are preserved without degenerative or erosiv e change. Soft tissues are unremarkable. No joint effusion is seen. Impression: No acute abnormality. Stable sclerotic density projecting over the medial femoral condyle since 2010. Reviewed, dictated and finalized at location M. Impression: No acute abnormality. Stable sclerotic density projecting over the medial femoral condyle since 2010.
[2024-08-21 03:25] VITALS: BP 124/72; PULSE 73; RESP 19; O2SAT 97
--- NOTE | 2024-08-21 04:07 | PC.NURSE ---
x-ray at bedside
--- NOTE | 2024-08-21 04:30 | PC.NURSE ---
LATE ENTRY: Pt complaining c/o 8/10 L knee pain, refer to MAR for medication education.
--- OUTSIDE RECORDS SUMMARY | 2024-08-21 05:34 | XMS_ITS | Clinical Summary ---
Author Organization [facility] Address [facility] [place] [address] Care Team Providers Care Storage Wharfage Clerk Name Role Phone Tete Bustamante PA-C Primary Care Provider [phone] Allergies No known active allergies Medications sertraline (ZOLOFT) 50 MG tablet Take 75 mg by mouth nightly. 05/25/2020 Active spironolactone (ALDACTONE) 100 MG tablet Take 1 tablet by mouth daily. Active Multiple Vitamins-Calciu m (ONE-A-DAY WOMENS FORMULA) Tab Take 1 tablet by mouth daily. Active BIOTIN OR Take 1 tablet by mouth daily. Active Ascorbic Acid (VITAMIN C OR) Take 1 tablet by mouth daily. Active Ergocalciferol (VITAMIN D OR) Take 1 tablet by mouth daily. Active Specialty Vitamins Products (COLLAGEN ULTRA OR) Take 1 tablet by mouth daily. Active acetaminophen (TYLENOL) 325 MG tablet Take 2 tablets (650 mg total) by mouth every 4 (four) hours as needed for Pain. For Mild Pain or Fever 06/29/2022 Active oxyCODONE-aceta minophen (PERCOCET) 5-325 MG tabletIndicatio ns:Acute Pain < 7 Day Supply Take 1-2 tablets by mouth every 6 (six) hours as needed for Pain. Indications: Acute Pain < 7 Day Supply For Severe Pain 6 tablet 06/29/2022 Active Family History Medical History Relation Comments Heart Disease Father cabg Cancer Maternal Grandmother pancreatic Diabetes Mother type 2 Breast Cancer Other Relation Status Comments Father Maternal Grandmother Mother Other Alive Social History Tobacco Use Types Packs/Day Years Used Date Smoking Tobacco: Former Cigarettes 0.5 7 1 06/19/2014 - 04/18/2022 Smokeless Tobacco: Never Tobacco Cessation:Counseling Given: Not Answered Comments:Vaps with nicotine 5 % Alcohol Use Standard Drinks/Week Comments Yes 0 (1 standard drink = 0.6 oz pur e alcohol) rare social Comments Unknown Sex and Gender Information Value Date Recorded Sex Assigned at Not on file Legal Sex Female 5:00 PM CDT Gender Identity Not on file Sexual Orientation Not on file Last Filed Vital Signs Vital Sign Reading Time Taken Comments Blood Pressure 126/76 01/18/2023 10:17 PM CDT Pulse 66 01/18/2023 10:17 PM CDT Temperature 36.5 C (97.7 F) 01/18/2023 10:17 PM CDT Respiratory Rate 16 01/18/2023 10:17 PM CDT Oxygen Saturation 98% 01/18/2023 10:17 PM CDT Inhaled Oxygen Concentration - - Weight 106.1 kg (234 lb) 01/18/2023 7:33 PM CDT Height 165.1 cm (5' 5 ) 01/18/2023 7:33 PM CDT Body Mass Index 38.94 01/18/2023 7:33 PM CDT Plan of Treatment Health Maintenance Due Date Last Done Comments Cervical Cancer Screening Pap Smear (Age 30 to 64) Every 3 Years 1991 Annual Physical 1994 Hepatitis C 2009 DTaP, Tdap and Td Vaccines (1 - Tdap) 2010 11/16/1992, 1991, 1991, Additional history exists Hepatitis B Vaccines (1 of 3 - 19+ 3-dose series) 2010 Cervical Cancer Screening Pap with HPV Testing (Age 30 to 64) Every 5 Years 2021 Cervical Cancer Screening with HPV 2021 COVID-19 Vaccine (2023- season) 2024 HPV Vaccines Aged Out No longer eligi ble based on patient's age to complete this topic Meningococcal B Vaccine Aged Out No l onger eligible based on patient's age to complete this topic Meningococcal Vaccine Aged Out No jimmy elvie eligible based on patient's age to complete this topic Pneumococcal Vaccine: Pediatrics (0 to 5 Years) and At-Risk Patients (6 to 49 Years) Aged Out No longer eligible based on patient's age to complete this topic RSV Immunizations Under 20 Months Aged Out No longer eligible based on patient's age to complete this topic Insurance [facility] Care Teams Storage Wharfage Clerk Relationship Specialty Start Date End Date Tete Bustamante PA-C [address] [place] [id number] PCP - General NURSE PRACTITIONER 05/08/21
--- OUTSIDE RECORDS SUMMARY | 2024-08-21 05:34 | XMS_ITS | Clinical Summary ---
Author Organization [facility] Address [address] [place] [address] Phone Care Team Providers Care Rigger Supervisor Name Role Phone Tete Bustamante Thelma FERNANDES Primary Care Provider [phone] Joe Watson DO Unavailable [phone] Allergies No known active allergies Medications spironolactone (ALDACTONE) 100 MG Tablet Take 100 mg by mouth daily. Active Aspirin-Acetamin ophen-Caffeine (EXCEDRIN MIGRAINE PO) Take by mouth as needed. Active Protein Powder Take by mouth. Active Multiple Vitamins-Calcium (One-A-Day Womens Formula) Tablet Take 1 Tablet by mouth daily. Active Active Problems No known active problems Family History Medical History Relation Name Comments Autism Child 2 ADD / ADHD Child 3 Hypertension Father Other-comment Father bursitis Diabetes Mother Hypertension Mother Relation Name Status Comments Child 1 Child 2 Alive Child 3 Alive Father Alive Mother Alive Sister 1 Alive Sister 2 Alive Sister 3 Alive Social History Tobacco Use Types Packs/Day Years Used Date Smoking Tobacco: Former Cigarettes Smokeless Tobacco: Never Tobacco Cessation:Counseling Given: No Alcohol Use Standard Drinks/Week Comments Yes 0 (1 standard drink = 0.6 oz pur e alcohol) occasionally Comments Unknown Sex and Gender Information Value Date Recorded Sex Assigned at Not on file Legal Sex Female 12:06 PM CDT Gender Identity Not on file Sexual Orientation Not on file Last Filed Vital Signs Vital Sign Reading Time Taken Comments Blood Pressure 126/74 01/01/2024 11:44 AM CDT Pulse 74 01/01/2024 11:44 AM CDT Temperature 36.8 C (98.2 F) 01/01/2024 11:44 AM CDT Respiratory Rate 18 01/01/2024 11:44 AM CDT Oxygen Saturation 99% 01/01/2024 11:44 AM CDT Inhaled Oxygen Concentration - - Weight 114.8 kg (253 lb) 01/01/2024 11:44 AM CDT Height 165.1 cm (5' 5 ) 01/01/2024 11:44 AM CDT Body Mass Index 42.1 01/01/2024 11:44 AM CDT Plan of Treatment Health Maintenance Due Date Last Done Comments Hepatitis C Virus (HCV) Screening 1991 Hepatitis B Immunization (1 of 3 - 19+ 3-dose series) 2010 Pap Smear 2012 Cervical Cancer Screening (CCS) 2021 HPV/Cotest 2021 Influenza Immunization (#1) 2024 SARS-COV-2 Immunization ( season) 2024 10/21/2020, 09/23/2020 Respiratory Syncytial Virus (RSV) Immunization (Adult) (1 - 1-dose 75+ series) 2066 TdaP Immunization Completed 07/06/2023, 09/14/2015 Meningococcal Immunization (ACWY) Aged Out No longer eligible b ased on patient's age to complete this topic Pneumococcal Immunization Combined Aged Out No longer eligible b ased on patient's age to complete this topic Rotavirus Immunization Aged Out No lo nger eligible based on patient's age to complete this topic Insurance [facility] Care Teams Rigger Supervisor Relationship Specialty Start Date End Date Tete Bustamante PAC [address] [place] [address] PCP - General Physician Airplane Patrol Pilot 11/08/23 Joe Watson DO [address] [place] [phone] Consulting Physician Oncology 11/08/23
--- OUTSIDE RECORDS SUMMARY | 2024-08-21 05:34 | XMS_ITS | Encounter Summary ---
Author Organization [facility] Address [address] [place] [id number] Care Team Providers Care Syrup Machine Laborer Name Role Phone Erasmo Peña MD Primary Care Provider Unava Tete Galarza PA-C Primary Care Provider [phone] Encounter Details Date Type Department Care Team (Late st Contact Info) Description 12/18/2014 Abstract [facility] CONVERSION [address] [place] [address] , Generic MD Alena Social History Tobacco Use Types Packs/Day Years Used Date Smoking Tobacco: Never Assessed Comments Unknown Sex and Gender Information Value Date Recorded Sex Assigned at Not on file Legal Sex Female 5:00 PM CDT Gender Identity Not on file Sexual Orientation Not on file documented as of this encounter Plan of Treatment Not on file documented as of this encounter Visit Diagnoses Not on filedocumented in this encounter Additional Health Concerns Infection Onset Date Last Indicated Resolved Time COVID-19 Rule Out 05/08/2021 05/08/2021 05/08/2021 6:44 PM WOOD REPATCHER COVID-19 Rule Out 05/08/2021 05/08/2021 05/08/2021 10:56 PM WOOD REPATCHER documented as of this encounter Care Teams Syrup Machine Laborer Relationship Specialty Start Date End Date Erasmo Peña MD PCP - General INTERNAL MEDICINE 10/21/18 05/07/21 Tete Bustamante PA-C [address] [place] [phone] PCP - General NURSE PRACTITIONER 05/08/21 documented as of this encounter
--- NOTE | 2024-08-21 06:54 | ED_ITS ---
HPI - General Adult General Chief complaint: Extremity Injury, Lower Stated complaint: Left knee pain Time Seen by Provider: 08/21/24 06:52 History of Present Illness HPI narrative: Patient is a 34-year-old female who presents to the emergency department this evening complaining of left knee pain for the past day. Patient states that all of a sudden her left knee gave out. Denies any additional injuries or trauma. Patient states that she has been trying to take some [id number] medications, muscle relaxers and use a knee brace with minimal to no relief. No additional symptoms or concerns at this time. Related Data Home Medications ?Medication ?Instructions ?Recorded ?Confirmed ?Last Taken ?Type spironolactone 100 mg tablet 100 mg PO DAILY 05/30/21 07/22/24 Unknown History Allergies Allergy/AdvReac Type Severity Reaction Status Date / Time metoclopramide (From Reglan) Allergy Severe Hives Verified 07/22/24 15:18 Review of Systems Review of Systems: All systems are reviewed and are negative unless stated otherwise in the HPI. [facility] Past Medical History Medical History Encounter for insertion of Susan IUD (~12/2023) Encounter for screening examination for sexually transmitted disease Endometriosis Intrauterine device Susan insertion 11/16/16 Susan removal/replacement 05/25/20 Susan removal/replacement 01/03/21 b/c device had shifted Hyperlipemia Anxiety Depression Kidney stones Surgical History Surgical History H/O laparoscopy (06/29/22) endometriosis Hx of tonsillectomy History of cholecystectomy 12/30/16 History of appendectomy History of section 11/24/13 09/27/15 Family History Family History Other Diabetes mellitus maternal aunt Autism daughter Mother Diabetes mellitus Cerebrovascular accident Father Heart disease Grandparent Breast cancer paternal grandmother Sibling Cerebral palsy sister Other Asthma Hypertension Social History Social History Smoking status: Former smoker Tobacco type: e-cigarettes/vaping Smoking end date: 05/06/09 Alcohol intake: former Alcohol use details: 1-2 on weekends Substance use: never Substance use type: does not use Do You Feel Safe in your Home?: Yes Lack of Transportation: No Lack of Food: Sometimes True Current Housing: I Have Housing Concerned About Future Housing: No Difficulty Paying Gas/Electric Bills: No Difficulty Paying for Meds: No Currently Unemployed: No Education: Trade/Vocational Certificate Difficulty w/ Childcare or Family Care: No Living arrangements: with family Additional living arrangements comments: living on her own Occupation/Education: occupation 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 HEENT: PERRL, no rhinorrhea, no post nasal drip, oropharynx clear. Neck: Trachea midline, no JVD, no lymphadenopathy. Cardiovascular: Regular rate and rhythm, no murmurs, rubs or gallops, no peripheral edema. Respiratory: Clear to auscultation bilaterally, no tachypnea, no wheezing, no rhonchi, no rubs, no respiratory distress. Abdomen: Soft, nontender, nondistended, no rebound, no guarding, no peritoneal signs. Musculoskeletal: No left knee joint swelling or deformity, normal muscle tone. Skin: No rashes or petechia, no signs of infection. Psychiatric: Alert and oriented, normal behavior and judgment for situation. Neurological: Alert and oriented to person, place, and time. Follows all commands. No focal deficits, speech is clear and fluent. Course Vital Signs Vital signs: Vital Signs Pulse Rate 73 08/21/24 03:25 Respiratory Rate 19 08/21/24 03:25 Blood Pressure 124/72 08/21/24 03:25 Pulse Oximetry 97 08/21/24 03:25 Oxygen Delivery Room Air 08/21/24 03:25 Pulse Rate 73 08/21/24 03:25 Respiratory Rate 19 08/21/24 03:25 Blood Pressure 124/72 08/21/24 03:25 Pulse Oximetry 97 08/21/24 03:25 Oxygen Delivery Room Air 08/21/24 03:25 Medical Decision Making MDM Narrative Medical decision making narrative: The patient was evaluated by myself in the emergency department. History is obtained from patient who is an independent historian and physical exam was performed. External medical records were reviewed at this time. Patient was administered an oral [place] 5-325 mg. Imaging studies obtained included left knee x-ray which was independently interpreted by me revealing: Stable sclerotic density projecting over the medial femoral condyle since 2010. Patient was informed of these findings at bedside, instructed that she will need to follow-up with orthopedics and obtain an outpatient left knee MRI for evaluation of any meniscal or cruciate ligament injury. Patient was instructed to rest, ice and elevate her left knee joint and to weight bear as tolerated. Differential diagnosis considerations include ACL versus PCL injury, fractures, dislocations, meniscal injury. Comorbidities impacting this visit include none. I have evaluated and discussed social determinants of health with the patient that could potentially impact subsequent diagnosis and treatment plans. On repeat assessment of the patient, reevaluation revealed that the patient is doing well and is in no acute distress. Patient symptoms have improved since she arrived to our emergency department. Repeat vital signs were all reviewed and noted to be stable. Differential diagnosis and treatment plan were discussed with the patient at bedside. Patient agrees with discussion and after shared medical decision making agrees with discharge. All questions were answered to the patient's satisfaction. Patient will follow up with Orthopedics in 3-5 days. Patient was provided with strict return precautions and instructed to return to the emergency department if any new or worsening symptoms develop. The patient was discharged in stable condition. Vital Signs Vital Signs: Vital Signs Pulse Rate 73 08/21/24 03:25 Respiratory Rate 19 08/21/24 03:25 Blood Pressure 124/72 08/21/24 03:25 Pulse Oximetry 97 08/21/24 03:25 Oxygen Delivery Room Air 08/21/24 03:25 Pulse Rate 73 08/21/24 03:25 Respiratory Rate 19 08/21/24 03:25 Blood Pressure 124/72 08/21/24 03:25 Pulse Oximetry 97 08/21/24 03:25 Oxygen Delivery Room Air 08/21/24 03:25 Discharge Plan Discharge Clinical Impression: Acute internal derangement of left knee Patient Disposition: Home Condition: Improved Instructions: Antibiotic Form, Knee Sprain (DC) Additional Instructions: Please follow-up with your orthopedic surgeon you were provided with today within the next 3-5 days, rest, ice and elevate 2 left knee joint. Weight bear as tolerated. Return to the ED if any new or worsening symptoms develop. Patient Language: Occitan Prescriptions: No Action spironolactone 100 mg tablet 100 mg PO DAILY famotidine [Pepcid] 20 mg tablet 20 mg PO BID 42 Days Qty: 84 0RF nystatin 100,000 unit/gram cream 1 applic topical BID Qty: 30 11RF Follow-up/Referrals: Dianna,RAYMOND Olivarez [Primary Care Provider] - Gatito Curry MD [Physician] - 3 Days Time of Disposition: 06:56
--- NOTE | 2024-08-21 07:01 | PC.NURSE ---
Pt provided with crutches and L knee [place] wrap applied.
--- OUTSIDE RECORDS SUMMARY | 2024-08-21 07:18 | XMS_ITS | Referral Summary ---
Author Organization [facility] Address [address] [place] [id number] Care Team Providers Care Fur Comber Name Role Phone Tete Bustamante Primary Care Provider + Allergies No known active allergies Medications spironolactone (ALDACTONE) 100 mg tablet Take 1 tablet (100 mg total) by mouth daily Active levoFLOXacin (QUIXIN) 0.5 % ophthalmic solutionIndicat ions:abrasion Administer 1 drop into the right eye every 2 (two) hours Apply 1-2 drops every 2 hours while awake for 2 days, then every 4 hours for 5 days. Do not wear your contacts 5 mL 4 Active diclofenac 0.1 % ophthalmic solution Administer 1 drop into both eyes 4 (four) times a day 5 mL 4 Active Active Problems Problem Noted Date Diagnosed Date Normal 04/16/2013 Immunizations Immunization Administration Dates Next Due Tdap 07/06/2023 Social History Tobacco Use Types Packs/Day Years Used Date Smoking Tobacco: Never Tobacco Cessation:Counseling Given: Not Answered Alcohol Use Standard Drinks/Week Comments Not Currently 0 (1 standard drink = 0.6 oz pur e alcohol) Personal Safety Answer Date Recorded Have you ever been in or are you currently in a harmful physical or emotional relationship or is someone making you feel afraid or unsafe? Denies 07/06/2023 Comments No Sex and Gender Information Value Date Recorded Sex Assigned at Not on file Legal Sex Female 11:20 PM BUSINESS BANKING REPRESENTATIVE Gender Identity Not on file Sexual Orientation Not on file Last Filed Vital Signs Vital Sign Reading Time Taken Comments Blood Pressure 129/83 07/06/2023 3:58 PM BUSINESS BANKING REPRESENTATIVE Pulse 85 07/06/2023 3:58 PM BUSINESS BANKING REPRESENTATIVE Temperature - - Respiratory Rate 20 07/06/2023 3:58 PM BUSINESS BANKING REPRESENTATIVE Oxygen Saturation 100% 07/06/2023 3:58 PM BUSINESS BANKING REPRESENTATIVE Inhaled Oxygen Concentration - - Weight 106.6 kg (235 lb) 07/06/2023 3:58 PM BUSINESS BANKING REPRESENTATIVE Height 165.1 cm (5' 5 ) 07/06/2023 3:58 PM BUSINESS BANKING REPRESENTATIVE Body Mass Index 39.11 07/06/2023 3:58 PM BUSINESS BANKING REPRESENTATIVE Plan of Treatment Not on file Insurance [employer] [place] [employer] COMPENSATION GENERIC COMPENSATION Care Teams Fur Comber Relationship Specialty Start Date End Date Tete Bustamante PA PCP - General Physician Meter Reading Clerk 07/06/23
--- OUTSIDE RECORDS SUMMARY | 2024-08-21 07:18 | XMS_ITS | Clinical Summary ---
Author Organization [facility] Address [address] [place] [address] Phone Care Team Providers Care Inspection Engineer Name Role Phone Tete Bustamante Thelma FERNANDES Primary Care Provider + [phone] Joe Watson DO Unavailable Allergies No known active allergies Medications spironolactone [...] patient's age to complete this topic Insurance [facility] Care Teams Inspection Engineer Relationship Specialty Start Date End Date Tete Bustamante PAC [address] [place] [address] PCP - General Physician Public Safety Teacher 11/08/23 Joe Watson DO [address] [place] [phone] Consulting Physician Oncology 11/08/23
--- OUTSIDE RECORDS SUMMARY | 2024-08-21 07:18 | XMS_ITS | Clinical Summary ---
Author Organization [facility] Address [facility] [place] [address] Care Team Providers Care Receptionist Scheduler Name Role Phone Tete Bustamante PA-C Primary Care Provider [phone] Allergies No known active allergies Medications sertraline [...] patient's age to complete this topic Insurance [facility] Care Teams Receptionist Scheduler Relationship Specialty Start Date End Date Tete Bustamante PA-C [address] [place] [id number] PCP - General NURSE PRACTITIONER 05/08/21
--- OUTSIDE RECORDS SUMMARY | 2024-08-21 07:18 | XMS_ITS | Clinical Summary ---
Author Organization [facility] Address [address] [place] [id number] Care Team Providers Care Converting Operator Name Role Phone Tete Bustamante Primary Care [...] Immunization Administration Dates Next Due Tdap 07/06/2023 Surgical History Surgery Date Site/Laterality Comments [place] TONSILLECTOMY & ADENOIDEC TRICIA <AGE 13 Tonsillectomy With Adenoidectomy - (Added by TW Conv) SECTION x2 Medical History Medical History Date Comments Personal history of other me ntal and behavioral disorders History of depression - (Add ed by TW Conv) Stillbirth Stillborn, marky l - (Added by TW Conv) Endometriosis determined by laparoscopy Family History Medical History Relation Name Comments Diabetes type II Maternal Grandmother Fam jonathan history of type 2 diabetes mellitus - (Added by TW Conv) Hypertension Maternal Grandmother Family history of hypertension - (Added by TW Conv) Pancreatic cancer Maternal Grandmother Fa jigna history of malignant neoplasm of pancreas - (Added by TW Conv) Diabetes type II Mother Family hist ory of type 2 diabetes mellitus - (Added by TW Conv) Hypertension Mother Family history of hypertension - (Added by TW Conv) Breast cancer Paternal Grandmother Family history of malignant neoplasm of breast - (Added by TW Conv) Relation Name Status Comments Maternal Grandmother Mother Paternal Grandmother Social History Tobacco Use Types Packs/Day Years [...] on file Legal Sex Female 11:20 PM COCOA ROASTER Gender Identity Not on file Sexual Orientation Not on file Obstetrics History Last Filed Vital Signs Vital Sign Reading Time Taken Comments Blood Pressure 129/83 07/06/2023 3:58 PM COCOA ROASTER Pulse 85 07/06/2023 3:58 PM COCOA ROASTER Temperature - - Respiratory Rate 20 07/06/2023 3:58 PM COCOA ROASTER Oxygen Saturation 100% 07/06/2023 3:58 PM COCOA ROASTER Inhaled Oxygen Concentration - - Weight 106.6 kg (235 lb) 07/06/2023 3:58 PM COCOA ROASTER Height 165.1 cm (5' 5 ) 07/06/2023 3:58 PM COCOA ROASTER Body Mass Index 39.11 07/06/2023 3:58 PM COCOA ROASTER Plan of Treatment Health Maintenance Due Date Last Done Comments Cervical Cancer Screening 1991 Depression Screening 1991 Hepatitis C Screening 1991 Varicella Vaccines (1 of 2 - 13+ 2-dose series) 2004 Hepatitis B Screening 2009 Regular Well Visit/Exam 18-64 2009 Influenza Vaccine (#1) 2024 DTaP/Tdap/Td Vaccine (2 - Td or Tdap) 07/05/2033 07/06/2023 HPV Vaccines Aged Out No longer eligi ble based on patient's age to complete this topic Pneumococcal vaccine <65 Aged Out No longer eligible based on patient's age to complete this topic Insurance [employer] [place] [place] COMPENSATION GENERIC COMPENSATION Care Teams Converting Operator Relationship Specialty Start Date End Date Tete Bustamante PA PCP - General Physician Day Guard 07/06/23
--- OUTSIDE RECORDS SUMMARY | 2024-08-21 07:18 | XMS_ITS | Encounter Summary ---
Author Organization [facility] Address [address] [place] [id number] Care Team Providers Care Utilization Management Nurse Name Role Phone Erasmo Peña MD Primary Care Provider Unava Tete Galarza PA-C Primary Care Provider [phone] Encounter Details Date Type Department Care Team (Late st Contact Info) Description 12/18/2014 Abstract [facility] CONVERSION [address] [place] [address] , Generic MD Alena Social History Tobacco [...] Rule Out 05/08/2021 05/08/2021 05/08/2021 6:44 PM MECHANICAL MANUFACTURING TECHNICIAN COVID-19 Rule Out 05/08/2021 05/08/2021 05/08/2021 10:56 PM MECHANICAL MANUFACTURING TECHNICIAN documented as of this encounter Care Teams Utilization Management Nurse Relationship Specialty Start Date End Date Erasmo Peña MD PCP - General INTERNAL MEDICINE 10/21/18 05/07/21 Tete Bustamante PA-C [address] [place] [phone] PCP - General NURSE PRACTITIONER 05/08/21 documented as of this encounter
== END 2024-08-21 07:29 | disposition home or self-care (01) ==
LOC: ANHED 07:15
PROVIDERS: Emergency Provider Emergency Medicine; PCP Physician Assistant
DX: M23.92 Unspecified internal derangement of left knee (principal); S89.92XA Unspecified injury of left lower leg, initial encounter; E78.5 Hyperlipidemia, unspecified; Z97.5 Presence of (intrauterine) contraceptive device; Z87.442 Personal history of urinary calculi; Z87.891 Personal history of nicotine dependence; Z90.49 Acquired absence of other specified parts of digestive tract; X58.XXXA Exposure to other specified factors, initial encounter
CPT/HCPCS: 73564; 99283